=== PATIENT | female | born 1985 | race Caucasian/White ===

== ENCOUNTER → 2018-07-25 10:30 | Outpatient (CLI) | payer SELFPAY ==
[2018-07-25 15:52] LABS: Follicle Stimulating Hormone 8.6 mIU/mL; Free T3 2.9 pg/mL (2.18-3.98); Luteinizing Hormone 1.8 mIU/mL; Prolactin 3.5 ng/mL; T4 Free Direct 1.01 ng/dL (0.76-1.46); Thyroid Stim Hormone (TSH) 2.04 uIU/mL (0.358-3.74)
== END ==
PROVIDERS: Visit Provider Obstetrics & Gynecology
DX: N92.1 Excessive and frequent menstruation with irregular cycle (principal)
CPT/HCPCS: 36415; 83001; 83002; 83036; 84146; 84439; 84443; 84481